=== PATIENT | male | born 1990 | race Caucasian/White ===

== ENCOUNTER 2024-01-16 16:57 | Emergency (ER) | payer BC, SELFPAY ==
[2024-01-16] MEDS ORDERED: Acetaminophen 500 MG TAB ONE (19:00)
[2024-01-16 19:28] LABS: #Basophils 0.02 10x3/uL (0.0-0.2); #Eosinphils 0.04 10x3/uL (0.0-0.5); #Monocytes 1.18 10x3/uL (0.0-1.1); #Neutrophils 9.95 10x3/uL (1.5-8.4); %Basophils 0.2 % (0.0-2.0); %Eosinophils 0.3 % (0.0-6.0); %Lymphocytes 5.6 % (18.0-47.0); %Monocytes 9.9 % (0.0-10.0); %Neutrophils 83.7 % (40.0-75.0); Hematocrit 38.1 % (38.8-50.0); Mean Corpuscular HGB CONC 34.1 g/dL (32.0-36.0); Mean Corpuscular Hemoglobin 29.5 pg (27.0-33.0); Mean Corpuscular Volume 86.6 fl (81.2-95.1); Mean Platelet Volume 9.2 fl (7.4-10.4); Platelet Count 290 10x3/uL (150-450); RBC Distribution Width 12.3 % (11.5-14.5); White Blood Cell (WBC) Count 11.9 10x3/uL (3.5-10.5)
[2024-01-16 19:41] LABS: ALT (SGPT) 33 U/L (8-55); AST (SGOT) 31 U/L (5-34); Albumin 3.9 g/dL (3.5-5.0); Alkaline Phosphatase 45 U/L (40-110); Anion Gap 10 mmol/L (10-20); BUN (Urea Nitrogen) 19 mg/dL (8.9-20.6); Bilirubin, Total 0.6 mg/dL (0.2-1.2); Calc. Creatinine Clearance 0 mL/min (70-130); Calcium 8.6 mg/dL (7.8-10.44); Carbon Dioxide 26 mmol/L (22-29); Chloride 104 mmol/L (98-107); Estimated GFR 119; Globulin 2.6 g/dL (2.4-3.5); Glucose 101 mg/dL (70-105); Protein, Total 6.5 g/dL (6.0-8.3); Sodium 136 mmol/L (136-145)
[2024-01-16 19:49] LABS: Troponin I Less than 0.010 ng/mL (< 0.028)
== END 2024-01-16 20:05 | disposition home or self-care (01) ==
LOC: CSHERS 16:57
DX: R04.89 Hemorrhage from other sites in respiratory passages (principal); R09.02 Hypoxemia; F17.290 Nicotine dependence, other tobacco product, uncomplicated
CPT/HCPCS: 36415; 70450; 71275; 80053; 84484; 85025; 93005